=== PATIENT | male | born 1985 ===

== ENCOUNTER 2019-10-13 08:07 | Inpatient (IN) | payer OTHER ==
[~2019-10-13] VITALS: Ht 170.2 cm; Wt 91.6 kg
== END 2019-10-14 19:20 | disposition home or self-care (01) | DRG 343 ==
LOC: ER 08:07 → SURH 16:52
PROVIDERS: ADMIT Colon & Rectal Surgery
PROC: BW21ZZZ Computerized Tomography (CT Scan) of Abdomen and Pelvis (ICD-10-PCS; 2019-10-13)
PROC: 0DTJ4ZZ Resection of Appendix, Percutaneous Endoscopic Approach (ICD-10-PCS; principal; 2019-10-13 17:00)
DX: K35.30 Acute appendicitis with localized peritonitis, without perforation or gangrene (principal)

== ENCOUNTER → 2021-01-08 | Outpatient (CLI) | payer OTHER | END | disposition home or self-care (01) | LOC: RAD 12:14 | PROVIDERS: ATTEND Physical Medicine & Rehabilitation | DX: M54.5 Low back pain (principal) ==